=== PATIENT | female | born 1945 | race Caucasian/White ===

== ENCOUNTER → 2020-05-07 | Outpatient (CLI) | payer MEDICARE, BC, OTHER ==
[~2020-05-07] MED LIST: ASPI-630 PO; CALC-77 PO; EZET10TA20 PO; METO-239 PO; MULT-208 PO; OLME1TAB21 PO; OMEG100T PO; POTA99TA10 PO; RED600CA2 PO
--- NOTE | 2020-05-07 17:23 | RAD ---
BONE DENSITY AXIAL History: Reason: Postmenopausal/ Spl. Instructions: / History: TECHNIQUE: Dual energy x-ray absorptiometry of the lumbar spine and right hip was performed. T-score of average bone mineral density based was calculated based on standard deviations above or below the expected young adult normal value. Diagnostic definitions were established by the World [employer] Organization. FINDINGS: The average bone mineral density associated with L1-L4 is 1.234 g/cm^2, corresponding with a T-score of 0.5. The average total bone mineral density associated with right hip is 0.632 g/cm^2, corresponding with a T-score of -2.6. No comparison examinations are available. Refer to the worksheets for full detail. IMPRESSION: 1. 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 Average bone mineral density yields a T-score of -2.5 or less. Fracture risk is high. 2. Normal bone mineral density of the lumbar spine likely foci of elevated due to degenerative changes. Electronically signed by: Asael Caicedo DO (05/07/2020 5:20 PM) [id number]
--- NOTE | 2020-05-08 16:58 | RAD ---
BILATERAL SCREENING MAMMOGRAM, 3-D History: Routine screening. Comparison: 05/06/2019. Technique: MLO and CC digital tomosynthesis (3D) images obtained. Radiologist reviewed these images on dedicated workstation. Findings: Breast Tissue Density B : There are scattered areas of fibroglandular density. There are no dominant masses, suspicious microcalcifications, or architectural distortion. IMPRESSION: No mammographic evidence of malignancy. Recommend routine screening. BI-RADS category 1: Negative. The images were reviewed with computer-aided detection. Patient information is entered into reminder system with a target due date for the next screening mammogram. Mammography is the most sensitive method for finding small breast cancers, but it does not detect them all and is not a substitute for careful clinical examination. A negative mammogram does not negate a clinically suspicious finding and should not result in delay in biopsying a clinically suspicious abnormality. "Our facility is accredited by the [employer] Mammography [employer]." Electronically signed by: Ferdinand Cantu MD (05/08/2020 4:55 PM) [id number]
== END | disposition home or self-care (01) ==
LOC: DXRAD 12:46
PROVIDERS: ATTEND Physician Assistant
DX: Z12.31 Encounter for screening mammogram for malignant neoplasm of breast (principal); M81.0 Age-related osteoporosis without current pathological fracture; M81.8 Other osteoporosis without current pathological fracture
CPT/HCPCS: 77063; 77067; 77080

== ENCOUNTER → 2021-05-10 | Outpatient (CLI) | payer MEDICARE, BC, OTHER ==
--- NOTE | 2021-05-10 09:18 | RAD ---
EXAM: Bilateral digital screening mammogram with tomosynthesis. HISTORY: 75-year-old female presents for screening mammography. TECHNIQUE: Full-field digital craniocaudal and mediolateral oblique 2D and 3D tomosynthesis images of both breasts are obtained for evaluation. Computer aided detection was applied. COMPARISON: 05/07/2020 and 05/06/2019 BREAST PARENCHYMAL DENSITY: Level B - Scattered fibroglandular densities. FINDINGS: There is no new suspicious mass, microcalcification or region of architectural distortion. There is stable circumscribed nodular densities within the bilateral axillary tails likely due to lym ph nodes. There is a stable suspected benign island of breast parenchyma within the upper outer quadr ant of the left breast. There are a few benign calcifications. IMPRESSION: BI-RADS Category 2: Benign finding(s). RECOMMENDATION: Annual mammography is recommended. If your mammogram demonstrates that you have dense breast tissue, which could hide abnormalities, and if you have other risk factors for breast cancer that have been identified, you might benefit from s upplemental screening tests that may be suggested by your ordering physician. Dense breast tissue, i n and of itself, is a relatively common condition. This information is not provided to cause undue c oncern, but rather to raise your awareness and to promote discussion with your physician regarding th e presence of other risk factors, in addition to dense breast tissue. A report of your mammography re sults will be sent to you and your physician. You should contact your physician if you have any ques tions or concerns regarding this report. Mammography is a sensitive method for finding small breast cancers, but it does not detect them all a nd is not a substitute for careful clinical examination. A negative mammogram does not negate a clin ically suspicious finding and should not result in delay in biopsying a clinically suspicious abnorma lity. PQRS compliance statement - Patient information was entered into a reminder system with a target due date for the next mammogram. "Our facility is accredited by the [employer] Mammography [employer]." Electronically signed by: Winter Nicolas MD (05/10/2021 9:16 AM) [id number]
== END ==
LOC: MAMMO 08:20
PROVIDERS: ATTEND Physician Assistant
DX: Z12.31 Encounter for screening mammogram for malignant neoplasm of breast (principal)
CPT/HCPCS: 77063; 77067